=== PATIENT | female | born 1980 | race Caucasian/White ===

== ENCOUNTER → 2018-02-13 08:36 | Outpatient (CLI) | payer OTHER, SELFPAY ==
--- NOTE | 2018-02-13 08:40 | RAD_ITS ---
STUDY: X-RAY - LEFT HAND REASON FOR EXAM: Female, 37 years old. Pain TECHNIQUE: view(s) of the hand. COMPARISON: None. FINDINGS: Normal radiocarpal articulation. There is a positive ulnar variant of the distal radioulnar articulation. Normal visualized carpal bones. Normal carpal articulations Normal carpometacarpal articulation of the thumb. Normal second through fifth carpometacarpal joints. Normal metacarpi. Normal metacarpophalangeal joint of the thumb. Normal interphalangeal joint of the thumb. Normal proximal and distal phalanges of the thumb. Normal metacarpophalangeal joints of the second through fifth fingers. Normal proximal and distal interphalangeal joints of the second through fifth fingers. Normal phalanges of the second through fifth fingers. The soft tissue structures are unremarkable. RAD/Hand Min 3 Views IMPRESSION: No acute findings, positive ulnar variance Electronically Signed: El Nolasco MD at 17:30 EDT , Service support ,
--- NOTE | 2018-02-13 08:40 | RAD_ITS ---
STUDY: X-RAY - RIGHT HAND REASON FOR EXAM: Female, 37 years old. Bilateral hand pain. TECHNIQUE: 3 view(s) of the hand. COMPARISON: None. FINDINGS: Normal radiocarpal articulation. Normal distal radioulnar joint. Normal visualized carpal bones. Normal carpal articulations Normal carpometacarpal articulation of the thumb. Normal second through fifth carpometacarpal joints. Normal metacarpi. Normal metacarpophalangeal joint of the thumb. Normal interphalangeal joint of the thumb. Normal proximal and distal phalanges of the thumb. Normal metacarpophalangeal joints of the second through fifth fingers. Normal proximal and distal interphalangeal joints of the second through fifth fingers. Normal phalanges of the second through fifth fingers. The soft tissue structures are unremarkable. RAD/Hand Min 3 Views IMPRESSION: Normal x-ray examination of the hand. Electronically Signed: Arnaldo iWlks MD at 14:49 EDT Tel [phone], Service support ,
== END ==
PROVIDERS: Family Provider Internal Medicine; PCP Internal Medicine; Referring Provider Physician Assistant; Visit Provider Physician Assistant
DX: G56.03 Carpal tunnel syndrome, bilateral upper limbs (principal)
CPT/HCPCS: 73130

== ENCOUNTER → 2018-03-21 10:09 | Outpatient (CLI) | payer OTHER, SELFPAY ==
--- NOTE | 2018-03-21 14:39 | NEURO ---
NCS and/or EMG Patient Report Ordering Doctor: Abhi Appiah DATE OF SERVICE: 03/21/18 Estella Verma is a 38-year-old female presents for electrodiagnostic testing of the upper limbs. She is chief complaint of numbness and tingling in both hands. Electrodiagnostic findings: The left median motor nerve demonstrates prolonged distal latency with normal amplitude and conduction velocity. Normal right median motor response. Ulnar motor response is normal bilaterally. Normal median and ulnar F-wave. Prolonged median sensory latency at the wrist is noted bilaterally. Normal ulnar and radial sensory responses. Needle EMG testing shows no evidence of denervation in any muscles tested. Motor unit action potentials were of normal amplitude and duration. Electrodiagnostic impression: This is an abnormal study in the upper limbs. 1. Electrodiagnostic findings demonstrate bilateral median mononeuropathy. This is consistent with a mild right carpal tunnel syndrome and a moderate left carpal tunnel syndrome. 2. No electrodiagnostic evidence for ulnar neuropathy. If there are any further questions, please do not hesitate to contact me.
== END ==
PROVIDERS: Family Provider Family Medicine; PCP Family Medicine; Referring Provider Physician Assistant; Visit Provider Physician Assistant
DX: G56.00 Carpal tunnel syndrome, unspecified upper limb (principal)
CPT/HCPCS: 95886; 95912

== ENCOUNTER 2018-07-10 07:14 | Day surgery (SDC) | payer OTHER, SELFPAY ==
[2018-07-10 07:33] VITALS: BP 115/80; PULSE 77; RESP 14; TEMP 37.2; O2SAT 100; BMI 23.3
[2018-07-10] MEDS: Cefazolin 2 GM in 0.9% Normal Saline 100 ML IV (09:18)
[2018-07-10] MEDS: Bupiv/Epi 0.5% Mpf 30 ML Vial (09:37)
[2018-07-10] MEDS: Bupivacaine 0.25% 30 ML Vial (09:46)
[2018-07-10] MEDS: MethylPREDNISolone Acetate 80 MG/ML Vial (09:46)
[2018-07-10 10:00] VITALS: BP 107/70; BP 115/80; PULSE 66; RESP 14; TEMP 36.7; O2SAT 100
--- NOTE | 2018-07-10 10:01 | PCM.DC.ORTHO ---
Discharge Diet: No Restrictions Call your doctor if you observe: Shortness of breath, Chest pain Additional Instructions: Ice and elevate operative extremity next 72 hours. Keep dressing on clean and dry for 48 hours then may remove and allow warm soapy water to rinse over incision but do not submerge until sutures are out. Then apply bandaid over incision and change daily. encourage finger range of motion. Not lift more than 1/2 pound. Allergies/Adverse Reactions: Allergies No Known Allergies Allergy (Verified 07/03/18 08:56) Medications to take at Discharge ibuprofen 600 mg tablet 600 mg PO TID PRN #60 tab 08/30/17 Hydrocodone Bitart/Apap 5-325 [[place] 5MG-325MG] 1 - 2 tablet PO Q4H PRN PRN 5 Days #20 tablet 07/10/18 The following prescriptions were given: Hydrocodone Bitart/Apap 5-325 [[place] 5MG-325MG] 1 - 2 tablet PO Q4H PRN PRN 5 Days #20 tablet PRN Reason: Pain Primary Care Physician: Yordan Erickson DO [Primary Care Provider] - Test Results: Test results from this visit will be discussed in further detail at your follow-up appointment, if applicable. Please Follow Up With: Stephen Stevenson DO - 2 wk
--- NOTE | 2018-07-10 10:04 | OP.PCM_ITS ---
Report of Operation Date of Procedure: 07/10/18 Description of Surgical Findings:: Preoperative diagnosis; bilateral carpal tunnel syndrome Postoperative diagnosis; same Procedure: [left] open carpal tunnel release , right carpal tunnel injection Anesthesia: Local with MAC Tourniquet time; [10] minutes 250 mm Hg Complications: None Indication for procedure; This is a 38-year-old [female] with long-standing symptoms consistent with carpal tunnel syndrome the patient did have electrodiagnostic evidence of this and has failed conservative treatment. Risks benefits and alternatives were reviewed including risks of bleeding infection nerve artery tissue damage need for further surgery and continued pain and s ymptoms, hypersensitivity to scar and Pillar pain. Procedure; The patient was met in the preoperative holding area the operative extremity was identified by both patient and physician and was marked the patient was met by anesthesia and brought back to the operating room and transferred to the operating table in the supine position. Aanesthesia was started. A well-padded tourniquet was placed on the [left] upper extremity. The patient was prepped and draped in the usual sterile fashion. A timeout was called to ensure the proper patient procedure and extremity were being contemplated. 0.5 percent Marcaine with epinephrine was injected into the incisional area. An Esmarch was used to exsanguinate the extremity. The tourniquet was inflated to 250 mmHg. A midline incision was made with a 15 blade scalpel between the thenar and hypothenar eminence. This was carried down through the skin and subcutaneous tissue. Kathe retractors were then used, a deep blade scalpel was used to make a deep incision in the palmar aponeurosis. The kathe retractors were then placed deep to this and the transverse carpal ligament was identified a perforation was made with a scalpel and a Littler sci ssors were used to complete the release of the transverse carpal ligament distally under direct visualization with the tips facing ulnarly until the perivascular fat was reached. Then turning our attention proximally using a tension slide technique the proximal extent of the transverse carpal ligament was released . There was noted to be thickening of the transverse carpal ligament. The wound was thoroughly irrigated and was closed with 4-0 prolene vertical mattress stitches. Dressing was applied in the form of xeroform 4 x 4, web roll and an cyril wrap. Tourniquet was let down there is no intraoperative complications patient tolerated the procedure well and was transferred to the PACU. All counts were correct. The right carpal tunnel was prepared with alcohol and 20 mg of Depo-Medrol and 1 cc of 0.5% Marcaine were injected and it was applied.
[2018-07-10 10:05] VITALS: BP 103/69; BP 115/80; PULSE 85; RESP 16; O2SAT 100
[2018-07-10 10:10] VITALS: BP 105/78; BP 115/80; PULSE 76; RESP 16; O2SAT 100
[2018-07-10 10:15] VITALS: BP 103/87; BP 115/80; PULSE 66; RESP 16; TEMP 36.9; O2SAT 100
[2018-07-10 10:34] VITALS: BP 115/80
== END 2018-07-10 10:47 | disposition home or self-care (01) ==
LOC: SDC 07:14 → AC 07:15
PROVIDERS: Family Provider Family Medicine; PCP Family Medicine; Referring Provider Orthopaedic Surgery; Visit Provider Orthopaedic Surgery
PROC: (CPT 64721; principal; 2018-07-10 08:30)
DX: G56.03 Carpal tunnel syndrome, bilateral upper limbs (principal)
CPT/HCPCS: 01810; 20605; 64721; J7120; J2405

== ENCOUNTER → 2019-03-06 | Outpatient (CLI) | payer OTHER, SELFPAY ==
[2019-03-06 12:35] LABS: Absolute Lymphocyte Count 1.37 X10^3/uL (0.83-4.51); Absolute Neutrophil Count 4.7 X10^3/uL (2.0-7.7); Basophil# 0.06 X10^3/uL; Basophil% 0.9 % (0-1); Eosinophil# 0.18 X10^3/uL; Eosinophils% 2.6 % (0-5); Hematocrit 41.8 % (37-47); Hemoglobin 13.3 g/dL (12.0-15.0); Lymphocyte # 1.37 X10^3/ul (4.0); Lymphocyte % 19.9 % (19-41); Mean Corp Hgb Conc 31.8 g/dL (32-36); Mean Corpuscular Hgb 28.7 pg (27.0-32.0); Mean Corpuscular Volume 90.1 fL (81-99); Mean Platelet Vol. 11.2 fl (6.2-12.0); Monocyte# 0.56 X10^3/uL; Monocyte% 8.1 % (0-10); NRBC Flagged by Analyzer 0 % (0-5); Neutrophil # 4.67 X10^3/uL (2.7-7.7); Neutrophil % 67.9 % (47-70); Platelet Count 207 K/mm3 (150-450); RBC Distribution Width SD 39.1 fl (35.1-43.9); Red Blood Count 4.64 M/mm3 (4.2-5.4); White Blood Count 6.9 K/mm3 (4.4-11.0)
[2019-03-06 12:58] LABS: ALB/GLOB Ratio 1.1 RATIO (0.9-2.4); AST(SGOT) 36 U/L (15-37); Alanine Aminotransfer ALT/SGPT 26 U/L (13-56); Alkaline Phosphatase 75 U/L (45-117); Anion Gap 7 (5-15); BUN 15 mg/dL (7-18); BUN/Creat Ratio 15.4 RATIO (10-20); Calcium,Total 9.1 mg/dL (8.5-10.1); Chloride 103 mmol/L (98-107); Cholesterol 194 mg/dL (200); Creatinine, Serum 0.98 mg/dL (0.55-1.02); EST Glomerular Filtration Rate 68 mL/min (>60); Est Glom Filt Rate - Afr Amer 82 mL/min (>60); Globulin 3.8 g/dL (2.2-4.2); Glucose 91 mg/dL (74-106); High Density Lipoprotein 101 mg/dL; Potassium 4.2 mmol/L (3.5-5.1); Protein, Total 7.8 g/dL (6.4-8.2); Sodium Level 139 mmol/L (136-145); Triglycerides 66 mg/dL; Very Low Density Lipoprotein 13 mg/dL (5-40)
== END | disposition home or self-care (01) ==
LOC: LAB.FUTURE 08:12 → BFHLAB 09:14
PROVIDERS: Family Provider Family Medicine; PCP Family Medicine; Visit Provider Family Medicine
DX: Z00.00 Encounter for general adult medical examination without abnormal findings (principal)
CPT/HCPCS: 36415; 80053; 80061; 85025

== ENCOUNTER 2020-07-14 07:08 | Day surgery (SDC) | payer OTHER, SELFPAY ==
--- NOTE | 2020-07-14 07:17 | PCM.HP.BLA ---
History and Physical Date of Admission: 07/14/20 Intake Intake Visit Reasons: discuss ctr for right hand Accompanied by: Self Is patient in pain?: Yes Pain scale (1-10): 1 Allergies No Known Allergies Allergy (Verified 07/03/20 08:22) [facility] Medical History (Updated 07/23/18 @ 09:42 by Aniyah Simmons) Carpal tunnel syndrome (Chronic) Benign breast lumps (Acute) Cervical carcinoma (Acute) Vaginal delivery (Acute) Surgical History (Updated 07/10/18 @ 10:[address] Stephen Stevenson DO) History of breast biopsy (Acute) History of hysterectomy (Acute) Family History (Updated 08/30/17 @ 09:28 by Kathie Yi) Sister Breast cancer, Onset Age: 40 Grandfather Heart disease Myocardial infarction, Onset Age: 40 Father Heart disease Myocardial infarction, Onset Age: 50 Social History (Updated 07/03/20 @ 08:[address] Stephen Stevenson DO) Smoking Status: Never smoker alcohol intake: current alcohol intake frequency: holidays/special occasions only substance use type: does not use what type of physical activity do you participate in: other details: active lifestyle frequency: daily HPI discuss ctr for right hand: Details: Parts of this documentation were recorded by a scribe, this documentation accurately reflects the service provided and the decisions made by me, Dr. Stephen Stevenson, 07/03/20 [id number]. GILMER FIGUEROA is a 40 year old F here today to discuss CTR of her right hand. Patient has c/o numbness and tingling.Patient voiced this is a slow time at work and thinks now would be a good time for surgery. Has been using a brace qhs for several years. Pain worsens with activities. Patient denies previous OT for her right hand. Patient voiced she has previous done steroid injections, however would just like the problem resolved. Takes ibuprofen prn for pain control. Denies loss of strength. Denies any medical changes since last office visit. Last EMG study: 03/21/2018. Ortho Exam General General: Yes no acute distress Neurologic: Yes alert Psychologic: Yes reasonable and appropriate Right Wrist/Hand Skin/Wound: No Swelling, No Ecchymosis, Yes capillary refill normal Right Wrist: Yes Durken's Test, Tinel's and Phalen's WRIST: Positive Left Wrist/Hand Skin/Wound: No Swelling, No Ecchymosis Supplemental Info Assessment & Plan Problems 1. Right carpal tunnel syndrome G56.01 Plan Patient has right carpal tunnel syndrome she has had relief temporarily in the past from a carpal tunnel injection she continues to have symptoms despite night splinting she has had previous EMG which did demonstrate mild carpal tunnel symptoms are similar to her left upper extremity for which we performed carpal tunnel release surgery and she did very well. Discussed repeating versus not repeating EMG considering her consistent symptoms I am okay to forego a new EMG. Risks, benefits and alternatives of surgery reviewed including risk of bleeding, infection, nerve, artery and/or tissue damage continued pain or symptoms and expected post-operative course. All questions answered. Patient in agreement of plan. Follow up post-op or sooner if pain, swelling, numbness or associated symptoms, or concerns develop. Coding Level of Care Code Off vis,est,level 3 Diagnoses Right carpal tunnel syndrome G56.01 I have re-examined the patient. There are no clinical changes since date of exam
[2020-07-14 08:19] VITALS: BP 112/75; PULSE 69; RESP 16; TEMP 37.3; O2SAT 100; BMI 24.3
[2020-07-14] MEDS: Lactated Ringers 1,000 ML 100 ML IV (08:24)
[2020-07-14] MEDS: Cefazolin 2 GM in 0.9% Normal Saline 100 ML IV (09:39)
[2020-07-14] MEDS: Bupiv/Epi 0.5% Mpf 30 ML Vial (10:02)
--- NOTE | 2020-07-14 10:10 | PCM.DC.ORTHO ---
Discharge Diet: No Restrictions Keep extremity elevated above heart level: Operative Extremity Call your doctor if you observe: Shortness of breath, Chest pain Additional Instructions: Ice and elevate operative extremity next 72 hours. Keep dressing on clean and dry for 48 hours then may remove and allow warm soapy water to rinse over incision but do not submerge until sutures are out. Then apply bandaid over incision and change daily. encourage finger range of motion. Not lift more than 1/2 pound. Allergies/Adverse Reactions: Allergies No Known Allergies Allergy (Verified 07/14/20 08:14) Medications to take at Discharge Oxycodone [Oxyir] 5 mg PO Q4H PRN PRN #20 tablet 07/14/20 The following prescriptions were given: Oxycodone [Oxyir] 5 mg PO Q4H PRN PRN #20 tablet PRN Reason: Pain Score 6-10 Transmission Status: Sent to [facility] Primary Care Physician: Yordan Erickson DO [Primary Care Provider] - Test Results: Test results from this visit will be discussed in further detail at your follow-up appointment, if applicable. Please Follow Up With: Stephen Stevenson DO When: 2 weeks
[2020-07-14 10:11] VITALS: BP 102/66; BP 112/75; PULSE 67; RESP 14; TEMP 36.2; O2SAT 100
--- NOTE | 2020-07-14 10:11 | OP.PCM_ITS ---
Report of Operation Date of Procedure: 07/14/20 Description of Surgical Findings:: Preoperative diagnosis; right carpal tunnel syndrome Postoperative diagnosis; same Procedure: Right open carpal tunnel release Anesthesia: Local with MAC Tourniquet time; 10 minutes 250 mm Hg Complications: None Indication for procedure; This is a 40-year-old female with long-standing symptoms consistent with carpal tunnel syndrome has failed conservative treatment. She did have similar symptoms of carpal tunnel on her left upper extremity for which she underwent open carpal tunnel release and did very well. risks benefits and alternatives were reviewed including risks of bleeding infection nerve artery tissue damage need for further surgery and continued pain and symptoms, hypersensitivity to scar and Pillar pain. Procedure; The patient was met in the preoperative holding area the operative extremity was identified by both patient and physician and was marked the patient was met by anesthesia and brought back to the operating room and transferred to the operating table in the supine position. Aanesthesia was s tarted. A well-padded tourniquet was placed on the operative upper extremity. The patient was prepped and draped in the usual sterile fashion. A timeout was called to ensure the proper patient procedure and extremity were being contemplated. 0.5 percent Marcaine with epinephrine was injected into the incisional area. An Esmarch was used to exsanguinate the extremity. The tourniquet was inflated to 250 mmHg. A midline incision was made with a 15 blade scalpel between the thenar and hypothenar eminence. This was carried down through the skin and subcutaneous tissue. Kathe retractors were then used, a deep blade scalpel was used to make a deep incision in the palmar aponeurosis. The kathe retractors were then placed deep to this and the transverse carpal ligament was identified a perforation was made with a scalpel and a Littler scissors were used to complete the release of the transverse carpal ligament distally under direct visualization with the tips facing ulnarly until the per ivascular fat was reached. Then turning our attention proximally using a tension slide technique the proximal extent of the transverse carpal ligament was released . There was noted to be difficult hypertrophy of the transverse carpal ligament. The wound was thoroughly irrigated and was closed with 4-0 nylon vertical mattress stitches. Dressing was applied in the form of xeroform 4 x 4, web roll and an cyril wrap. Tourniquet was let down there is no intraoperative complications patient tolerated the procedure well and was transferred to the PACU. All counts were correct.
[2020-07-14 10:16] VITALS: BP 112/75; BP 99/59; PULSE 70; RESP 14; O2SAT 100
[2020-07-14 10:20] VITALS: BP 112/75; BP 99/54; PULSE 63; RESP 14; O2SAT 100
[2020-07-14 10:26] VITALS: BP 101/66; BP 112/75; PULSE 60; RESP 14; TEMP 36.3; O2SAT 100
[2020-07-14 11:01] VITALS: BP 105/73; BP 112/75; PULSE 57; RESP 16; TEMP 36.6; O2SAT 100
== END 2020-07-14 11:06 | disposition home or self-care (01) ==
LOC: SDC 07:09 → AC 07:09
PROVIDERS: PCP Family Medicine; Referring Provider Orthopaedic Surgery; Visit Provider Orthopaedic Surgery
PROC: (CPT 64721; principal; 2020-07-14 09:45)
DX: G56.01 Carpal tunnel syndrome, right upper limb (principal); Z20.822 Contact with and (suspected) exposure to COVID-19
CPT/HCPCS: 64721; 87426; C9803; J7120; J2405

== ENCOUNTER 2020-10-07 09:00 | Outpatient (RCR) | payer OTHER, SELFPAY ==
--- NOTE | 2020-09-07 12:52 | HP.OTEVAL_ITS ---
Patient's Visit Information GILMER FIGUEROA is a 40 year old F, referred to Occupational Therapy by Dr. Stephen Stevenson DO, with a diagnosis of right CTs. Date of Evaluation: 09/07/20 Occupational Therapist: Estephania Alberto, OTR/Patrice, CHT - Subjective This 40 year old female was seen for OT eval with dx of CTS and s/p 8 weeks right CTR. pt states she is frustrated and feels tenderness with touch and pain with griping - pt states this limits her ind. 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 pt states she would like to know what to expect with healing and return of her strength - ADLs Household: Vacuum, Wash windows Yard: Use shovel, Use pruners Comments: caring for farm animial - ROM Wrist: right 65/60 left 60/65 - Strength Drawing Instructor: right 50# left 75# Lateral Pinch: right18# left 20# Tripod Pinch: right 16# left 18# - Sensation Sensation Comments: denies - Quick DASH-Disab of Arm,Shoulder& Hand Quick DASH Score: 21.6650 - Goals Goal:: pt will demo a increase in right developmental mathematics professor strength to 70# or greater for pt to return to her PLOF. Goal:: pt will report no pain greater than 2/10 with use of right hand with work tasks and IADLs tasks by d/c Goal:: pt will demo understanding of scar mtg and use of elastomer by end of 2nd session to assist in scar mtg. - Rehabilitation General Assessment: pt demo with right hand weakness and scar pain with pressure. this limits pts ind. with ADls and IADLs. pt would benefit from further skilled OT services 1-2 x week for 4 weeks to return pt to PLOF. Today therapist ed. pt on scar mtg, use of elastomer at night, use of padded glove for daily tasks that applies painful pressure over incision. pt demo und erstanding and agree to POC. Rehabilitation Potential: Excellent - Anticipated Interventions Strengthening, Triggerpoint Release, Modalities - Visit Plan Frequency: 1-2x /Week Duration: 4 Weeks TEXT: Thank you for the opportunity to evaluate your patient. For Medicare and Medicare HMO plans, please review the plan of care and approve it. It will need to be FAXED BACK to us at [phone] for Medicare purposes. Please let me know if there are questions or concerns regarding this plan of care. Physician Signature: Date:
--- NOTE | 2020-10-08 08:07 | HP.OTDCSUM_ITS ---
It has been my pleasure to treat GILMER FIGUEROA under orders from Dr. Stephen Stevenson DO, for the diagnosis of right CTs for a total of 4 visit(s). Please see the following information for a summary of their discharge status. % Improvement: 90 Objective/Function: therapist remeasured instruction librarian right 78* left 80*. lateral pinch right 30# left 30#. 3-jaw dandre right 30# left 30# Patient Goals: Regain Strength, Decrease Pain Goal:: pt will demo a increase in right instruction librarian strength to 70# or greater for pt to return to her PLOF. Goal:: pt will report no pain greater than 2/10 with use of right hand with work tasks and IADLs tasks by d/c Goal:: pt will demo understanding of scar mtg and use of elastomer by end of 2nd session to assist in scar mtg. Plan: d/c Discharge Comments: Pt was seen for 4 visits for therapeutic ultrasound to decrease pain after carpal tunnel surgery. Pt reported a 90% improvement and returned to functional level of ADLs, and IADLs. Pt understands to continue with home exercise program and scar mtg. Pt agrees with d/c. If there are questions or concerns regarding this patient's occupational therapy, please fell free to call me at [phone]. Thank you for the referral of this patient. Sincerely, Estephania Alberto, DIOGOR/L, CHT
== END 2020-10-07 19:00 | disposition home or self-care (01) ==
LOC: OT 09:00
PROVIDERS: PCP Family Medicine; Referring Provider Orthopaedic Surgery; Visit Provider Orthopaedic Surgery
DX: Z98.890 Other specified postprocedural states (principal)
CPT/HCPCS: 97035; 97140; 97165; 97530